=== PATIENT | female | born 1985 | race Caucasian/White ===

== ENCOUNTER 2021-01-09 09:02 | Emergency (ER) | payer SELFPAY ==
--- NOTE | 2021-01-09 09:50 | EDPHYS ---
Physician Documentation [facility] Name: Lakeshia Hodges Age: 35 yrs Sex: Female : 1985 Arrival Date: 01/09/2021 Time: 09:04 Bed 24 Private MD: ED Physician Dereje Acevedo HPI: 01/09 09:41 This 35 yrs old Female presents to ER via Ambulatory with complaints of cp Medication Refill. 09:41 The patient presents to the emergency department requesting refill(s) for: Effexor. The cp patient chronically suffers from Depression. Patient reports running out of Venlafaxine 37.5 mg 2 days ago. 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 - Social history:: Smoking status: Patient denies any tobacco usage or history of. ROS: 09:45 All other systems are negative. cp Exam: 09:45 Head/Face: Normocephalic, atraumatic. cp 09:45 Constitutional: The patient appears in no acute distress, alert, awake, non-toxic, well developed, well nourished. 09:45 Eyes: Periorbital structures: appear normal, Conjunctiva: normal, no exudate, no injection, Lids and lashes: appear normal, bilaterally. 09:45 ENT: External ear(s): are unremarkable, Nose: is normal, Posterior pharynx: Airway: no evidence of obstruction, patent. 09:45 Chest/axilla: Inspection: normal. 09:45 Cardiovascular: Rate: normal. 09:45 Respiratory: the patient does not display signs of respiratory distress, Respirations: normal, no use of accessory muscles, no retractions. 09:45 Abdomen/GI: Exam negative for discomfort, distension, guarding, Inspection: abdomen appears normal. 09:45 Neuro: Orientation: to person, place \T\ time. Mentation: is normal, Motor: moves all fours, strength is normal. 09:45 Psych: Behavior/mood is pleasant, Affect is calm, Oriented to person, place, time, Judgement / Insight is normal. Delusions/hallucinations are not present. Vital Signs: 09:21 BP 124 / 82; Pulse 96; Resp 16; Temp 98.5; Pulse Ox 100% on R/A; Pain 0/10; iw MDM: 09:29 Patient medically screened. cp 09:47 Data reviewed: vital signs, nurses notes. cp 09:48 Counseling: I had a detailed discussion with the patient and/or guardian regarding: the cp historical points, exam findings, and any diagnostic results supporting the discharge/admit diagnosis, the need for outpatient follow up, a family practitioner, to return to the emergency department if symptoms worsen or persist or if there are any questions or concerns that arise at home. Administered Medications: 11:21 Drug: Effexor 37.5 mg Route: PO; iw Disposition: 10:00 Chart complete. cp Disposition: 01/09/21 09:49 Discharged to Home. Impression: Encounter for issue of repeat prescription. - Condition is Stable. - Discharge Instructions: Medicine Refill at the Emergency Department. - Prescriptions for venlafaxine 37.5 mg Oral capsule,extended release 24hr - take 1 capsule by ORAL route once daily; 20 capsule. - Medication Reconciliation Form, Thank You Letter, Antibiotic Education, Prescription Opioid Use form. - Follow up: Private Physician; When: 1 - 2 days; Reason: Worsening of condition. - Problem is new. - Symptoms have improved. Addendum: 01/11/2021 06:54 Co-signature as Attending Physician, Dereje Acevedo MD I agree with the assessment and c higuera plan of care. Signatures: Dereje Acevedo MD MD cha Williams, Irene, RN RN Dereje Calderon PA PA cp Corrections: (The following items were deleted from the chart) 01/09 11:22 09:49 01/09/2021 09:49 Discharged to Home. Impression: Encounter for issue of repeat iw prescription. Condition is Stable. Forms are Medication Reconciliation Form, Thank You Letter, Antibiotic Education, Prescription Opioid Use. Follow up: Private Physician; When: 1 - 2 days; Reason: Worsening of condition. Problem is new. Symptoms have improved. cp
--- NOTE | 2021-01-09 09:50 | ER ---
Nurse's Notes [facility] Name: Lakeshia Hodges Age: 35 yrs Sex: Female : 1985 Arrival Date: 01/09/2021 Time: 09:04 Bed 24 Private MD: Diagnosis: Encounter for issue of repeat prescription Presentation: 01/09 09:21 Chief complaint: Patient states: has been out of antidepressant X 2 days, is on iw venlafaxine 37.5 mg, Dr. Jennings office is closed and her pharmacy is closed. Coronavirus screen: At this time, the client does not indicate any symptoms associated with coronavirus-19. Ebola Screen: Patient negative for fever greater than or equal to 101.5 degrees Fahrenheit, and additional compatible Ebola Virus Disease symptoms Patient denies exposure to infectious person. Patient denies travel to an Ebola-affected area in the 21 days before illness onset. No symptoms or risks identified at this time. Initial Sepsis Screen: Does the patient meet any 2 criteria? No. Patient's initial sepsis screen is negative. Does the patient have a suspected source of infection? No. Patient's initial sepsis screen is negative. Risk Assessment: Do you want to hurt yourself or someone else? Patient reports no desire to harm self or others. Onset of symptoms was January 09, 2021. 09:21 Method Of Arrival: Ambulatory iw 09:21 Acuity: DIXON 5 iw Triage Assessment: 11:00 General: Appears in no apparent distress. Behavior is calm, cooperative. 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 - Social history:: Smoking status: Patient denies any tobacco usage or history of. Screenin:20 Abuse screen: Denies threats or abuse. Denies injuries from another. Nutritional iw screening: No deficits noted. Tuberculosis screening: No symptoms or risk factors identified. Fall Risk None identified. Assessment: 09:25 General: Appears in no apparent distress. Behavior is calm, cooperative. Pain: Denies iw pain. Neuro: Level of Consciousness is awake, alert, obeys commands, Oriented to person, place, time, situation, Moves all extremities. Full function. Cardiovascular: Patient's skin is warm and dry. Respiratory: Respiratory effort is even, unlabored, Respiratory pattern is regular. Derm: Skin is intact, is healthy with good turgor. Musculoskeletal: Range of motion: intact in all extremities. Vital Signs: 09:21 BP 124 / 82; Pulse 96; Resp 16; Temp 98.5; Pulse Ox 100% on R/A; Pain 0/10; iw ED Course: 09:04 Patient arrived in ED. rg4 09:23 Triage completed. iw 09:24 Dereje Calderon PA is PHCP. cp 09:24 Dereje Acevedo MD is Attending Physician. cp 09:25 Arm band placed on. iw 09:25 Patient has correct armband on for positive identification. iw 09:39 Pascale Garay RN is Primary Nurse. iw 11:21 No provider procedures requiring assistance completed. Patient did not have IV access iw during this emergency room visit. Administered Medications: 11:21 Drug: Effexor 37.5 mg Route: PO; iw Outcome: 09:49 Discharge ordered by MD. cp 11:21 Discharged to home ambulatory. iw 11:21 Condition: good 11:21 Discharge instructions given to patient, Instructed on discharge instructions, follow up and referral plans. medication usage, Demonstrated understanding of instructions, follow-up care, medications, Prescriptions given X 1. 11:22 Patient left the ED. iw Signatures: Pascale Garay RN RN iw Dereje Calderon PA PA cp Garcia, Rubi rg4
[2021-01-09] MEDS ORDERED: VENLAFAXINE HCL 37.5 MG TAB PO ONE (10:45)
[2021-01-09 11:31] VITALS: BP 124/82; TEMP 98.5; O2SAT 100
== END 2021-01-09 11:22 | disposition home or self-care (01) ==
LOC: ER 09:02
DX: Z76.0 Encounter for issue of repeat prescription (principal); F32.9 Major depressive disorder, single episode, unspecified
CPT/HCPCS: 99283

== ENCOUNTER 2021-02-20 15:01 | Emergency (ER) | payer SELFPAY ==
[2021-02-20 15:42] LABS: Urine Blood Negative (Negative); Urine Glucose Negative (Negative); Urine Protein Negative (Negative)
[2021-02-20 15:45] LABS: Absolute Lymphocytes (CBC) 2.8 K/uL (0.7-4.9); Basophils % 0.5 % (0-1.3); Hematocrit 34.2 % (36.0-45.0); Lymphocytes % 19.4 % (15.3-44.8); MPV 7.8 fL (7.6-11.3); RBC Red Blood Cell Count 3.89 M/uL (3.86-4.86)
[2021-02-20] MEDS ORDERED: LORazepam 2 MG/ML VIAL ONE (15:47)
[2021-02-20] MEDS ORDERED: NA CHLORIDE 0.9% 1,000 ML ONE (15:47)
[2021-02-20 15:54] LABS: Protime INR 0.99
[2021-02-20 15:58] LABS: Barbiturates NEGATIVE (NEGATIVE); Benzodiazepines NEGATIVE (NEGATIVE); Cocaine NEGATIVE (NEGATIVE); METHAMPHETAM NEGATIVE (NEGATIVE); Methadone NEGATIVE (NEGATIVE); Opiates NEGATIVE (NEGATIVE); Phencyclidine NEGATIVE (NEGATIVE); THC Cannibis POSITIVE (NEGATIVE)
[2021-02-20 16:19] LABS: ALT/SGPT 21 U/L (12-78); AST/SGOT 22 U/L (15-37); Albumin 3.9 g/dL (3.4-5.0); Alkaline Phosphatase 92 U/L (45-117); BUN Blood Urea Nitrogen 11 mg/dL (7-18); Bicarbonate 26 mmol/L (21-32); Bilirubin Direct < 0.1 mg/dL (0-0.2); Bilirubin Total 0.2 mg/dL (0.2-1.0); Glucose Level 86 mg/dL (74-106); Potassium 3.5 mmol/L (3.5-5.1); Sodium Level 143 mmol/L (136-145); Troponin (Emerg Dept Use Only) < 0.02 ng/mL (0.0-0.045)
--- NOTE | 2021-02-20 17:56 | EDPHYS ---
Physician Documentation [facility] Name: Lakeshia Hodges Age: 36 yrs Sex: Female : 1985 Arrival Date: 02/20/2021 Time: 15:02 Bed 14 Private MD: ED Physician Sandro Xiong HPI: 02/20 15:18 This 36 yrs old Female presents to ER via Ambulatory with complaints of jmm Anxiety. 15:18 The patient presents to the emergency department with anxiety. Onset: The jmm symptoms/episode began/occurred today. Associated signs and symptoms: Pertinent positives; palpitations, Pertinent negatives: abdominal pain. This is a 36 year old female with a history of depression that presents to the ED with complaints of anxiety. Patient states drinking a heavy amount of alcohol last night. Patient is concerned she may have ingested an unknown substance. . Historical: - Allergies: 15:11 No Known Allergies; ll1 - PMHx: 15:11 Depression; ll1 - PSHx: 15:11 Tubal ligation; Hernia repair; ll1 - Immunization history:: Flu vaccine is not up to date. - Social history:: Smoking status: Patient reports the use of cigarette tobacco products, denies chronic smoking, but will smoke occasionally. ROS: 15:18 Constitutional: Negative for fever, chills, and weight loss. jmm 15:18 Cardiovascular: Positive for palpitations. 15:18 Psych: Positive for anxiety. 15:18 All other systems are negative. Exam: 15:18 Head/Face: atraumatic. Eyes: EOMI, no conjunctival erythema appreciated ENT: Moist jmm Mucus Membranes Neck: Trachea midline, Supple Chest/axilla: Normal chest wall appearance and motion. 15:18 Respiratory: Normal respirations, no respiratory distress appreciated Abdomen/GI: Non distended, soft Back: Normal ROM Skin: General appearance color normal MS/ Extremity: Moves all extremities, no obvious deformities appreciated, no edema noted to the lower extremities 15:18 Constitutional: The patient appears alert, awake, anxious, uncomfortable. 15:18 Cardiovascular: Rate: tachycardic, Rhythm: 15:18 Neuro: Orientation: is normal, Mentation: is normal, Memory: is normal. 15:18 Psych: Behavior/mood is pleasant, cooperative, anxious. Vital Signs: 15:09 BP 125 / 89; Pulse 146; Resp 17; Temp 98.2; Pulse Ox 100% on R/A; Weight 49.44 kg; ll1 Height 5 ft. 0 in. (152.40 cm); Pain 10/10; 15:35 BP 130 / 96; Pulse 112; Resp 22; Pulse Ox 100% ; jl7 16:01 BP 122 / 86; Pulse 95; Resp 19; Pulse Ox 100% ; jl7 17:15 BP 108 / 76; Pulse 107; Resp 24; Pulse Ox 99% ; jl7 15:09 Body Mass Index 21.29 (49.44 kg, 152.40 cm) ll1 MDM: 15:18 Patient medically screened. [facility] 17:53 Data reviewed: vital signs, nurses notes. [facility] 17:53 Counseling: I had a detailed discussion with the patient and/or guardian regarding: the [facility] historical points, exam findings, and any diagnostic results supporting the discharge/admit diagnosis, lab results, the need for outpatient follow up, to return to the emergency department if symptoms worsen or persist or if there are any questions or concerns that arise at home. ED course: Patient states feeling much better. DS revealed THC, this was discussed with the patient. Patient will follow up with her PCP and otherwise given strict return precautions. patient understood and agrees with the plan of care. . 02/20 15:21 Order name: Acetaminophen [facility] 02/20 15:21 Order name: Basic Metabolic Panel [facility] 02/20 15:21 Order name: CBC with Diff [facility] 02/20 15:21 Order name: ETOH Level; Complete Time: 18:19 [facility] 02/20 15:21 Order name: Hepatic Function; Complete Time: 18:19 [facility] 02/20 15:21 Order name: PT-INR; Complete Time: 18:19 [facility] 02/20 15:21 Order name: Ptt, Activated; Complete Time: 18:19 [facility] 02/20 15:21 Order name: Salicylate; Complete Time: 18:19 [facility] 02/20 15:21 Order name: Urine Drug Screen; Complete Time: 16:08 [facility] 02/20 15:21 Order name: Troponin (emerg Dept Use Only); Complete Time: 18:19 [facility] 02/20 15:21 Order name: Acetaminophen Level; Complete Time: 18:19 [facility] 02/20 15:21 Order name: Basic Metabolic Panel; Complete Time: 18:19 [facility] 02/20 15:21 Order name: CBC with Automated Diff; Complete Time: 15:53 [facility] 02/20 15:41 Order name: Urine Dipstick-Ancillary; Complete Time: 15:53 [facility] 02/20 15:21 Order name: EKG; Complete Time: 15:22 [facility] 02/20 15:21 Order name: EKG - Nurse/Tech; Complete Time: 15:58 [facility] 02/20 15:21 Order name: IV Saline Lock; Complete Time: 15:33 [facility] 02/20 15:21 Order name: Labs collected and sent; Complete Time: 15:33 [facility] 02/20 15:21 Order name: Urine Dipstick-Ancillary (obtain specimen); Complete Time: 15:58 [facility] 02/20 15:44 Order name: Urine --Ancillary (enter results); Complete Time: 16:08 bd Administered Medications: 15:40 Drug: NS 0.9% 1000 ml Route: IV; Rate: 1 bolus; Site: right antecubital; 7 16:40 Follow up: Response: No adverse reaction; IV Status: Completed infusion; IV Intake: jl7 1000ml 15:40 Drug: Ativan 1 mg Route: IVP; Site: right antecubital; 7 15:58 Follow up: Response: No adverse reaction; Anxiety decreased jl7 Disposition: 18:50 Co-signature as Attending Physician, Sandro Xiong MD. ma2 Disposition: 02/20/21 17:56 Discharged to Home. Impression: Anxiety disorder, unspecified. - Condition is Stable. - Discharge Instructions: Panic Attacks. - Medication Reconciliation Form, Thank You Letter, Antibiotic Education, Prescription Opioid Use form. - Follow up: Private Physician; When: 2 - 3 days; Reason: Recheck today's complaints, Continuance of care, Re-evaluation by your physician. Signatures: Dispatcher [employer] [facility] Gabriel Lee PA PA jmm Leal, Jahala, RN RN jl7 Sandro Xiong MD MD ma2 Tyshawn Salazar RN RN ll1 Corrections: (The following items were deleted from the chart) 18:18 17:56 02/20/2021 17:56 Discharged to Home. Impression: Anxiety disorder, unspecified. jl7 Condition is Stable. Forms are Medication Reconciliation Form, Thank You Letter, Antibiotic Education, Prescription Opioid Use. Follow up: Private Physician; When: 2 - 3 days; Reason: Recheck today's complaints, Continuance of care, Re-evaluation by your physician. lauri
--- NOTE | 2021-02-20 17:56 | ER ---
Nurse's Notes [facility] Name: Lakeshia Hodges Age: 36 yrs Sex: Female : 1985 Arrival Date: 02/20/2021 Time: 15:02 Bed 14 Private MD: Diagnosis: Anxiety disorder, unspecified Presentation: 02/20 15:09 Chief complaint: Patient states: Drank last night a lot. 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 Anxiety attack for 1 day. + chest tightness. Near syncope. Coronavirus screen: Client denies travel out of the [place] in the last 14 days. At this time, the client does not indicate any symptoms associated with coronavirus-19. Ebola Screen: Patient denies travel to an Ebola-affected area in the 21 days before illness onset. Initial Sepsis Screen: Does the patient meet any 2 criteria? HR > 90 bpm. No. Patient's initial sepsis screen is negative. Does the patient have a suspected source of infection? No. Patient's initial sepsis screen is negative. Risk Assessment: Do you want to hurt yourself or someone else? Patient reports no desire to harm self or others. Onset of symptoms was February 20, 2021. 15:09 Method Of Arrival: Ambulatory ll1 15:09 Acuity: DIXON 3 ll1 Historical: - Allergies: 15:11 No Known Allergies; ll1 - PMHx: 15:11 Depression; ll1 - PSHx: 15:11 Tubal ligation; Hernia repair; ll1 - Immunization history:: Flu vaccine is not up to date. - Social history:: Smoking status: Patient reports the use of cigarette tobacco products, denies chronic smoking, but will smoke occasionally. Screenin:35 Abuse screen: Denies threats or abuse. Denies injuries from another. Nutritional jl7 screening: No deficits noted. Tuberculosis screening: No symptoms or risk factors identified. Fall Risk IV access (20 points). Total Meyer Fall Scale indicates No Risk (0-24 pts). Assessment: 15:35 General: Appears in no apparent distress. uncomfortable, Behavior is cooperative, jl7 anxious. Pain: Denies pain. Neuro: Level of Consciousness is awake, alert, obeys commands, Oriented to person, place, time, situation. Cardiovascular: Denies chest pain, Patient's skin is warm and dry. Rhythm is sinus tachycardia. Respiratory: Reports shortness of breath Airway is patent Respiratory effort is even, unlabored, Respiratory pattern is symmetrical, tachypnea. Derm: Skin is dry, Skin is flushed, Skin temperature is warm. 17:00 Reassessment: Pt laying in bed with eyes closed, respirations even and unlabored, no jl7 signs of distress noted at this time. 17:45 Reassessment: Patient appears in no apparent distress at this time. Patient is alert, jl7 oriented x 3, equal unlabored respirations, skin warm/dry/pink. Patient states feeling better. Patient states symptoms have improved. Vital Signs: 15:09 BP 125 / 89; Pulse 146; Resp 17; Temp 98.2; Pulse Ox 100% on R/A; Weight 49.44 kg; ll1 Height 5 ft. 0 in. (152.40 cm); Pain 10/10; 15:35 BP 130 / 96; Pulse 112; Resp 22; Pulse Ox 100% ; jl7 16:01 BP 122 / 86; Pulse 95; Resp 19; Pulse Ox 100% ; jl7 17:15 BP 108 / 76; Pulse 107; Resp 24; Pulse Ox 99% ; jl7 15:09 Body Mass Index 21.29 (49.44 kg, 152.40 cm) ll1 ED Course: 15:02 Patient arrived in ED. ds1 15:11 Triage completed. ll1 15:11 Arm band placed on Patient placed in an exam room, on a stretcher. ll1 15:14 Gabriel Lee PA is PHCP. [facility] 15:14 Sandro Xiong MD is Attending Physician. [facility] 15:27 Ayesha Francis RN is Primary Nurse. jl7 15:32 Inserted saline lock: 20 gauge in right antecubital area, using aseptic technique. dh4 Blood collected. 15:35 Patient has correct armband on for positive identification. Placed in gown. Bed in low jl7 position. Call light in reach. Side rails up X 1. property assessment monitor on. Pulse ox on. NIBP on. Warm blanket given. 15:35 Initial lab(s) drawn, by ED staff, sent to lab. Urine collected: clean catch specimen, jl7 clear, EKG done, by ED staff, reviewed by Gabriel CARR. 18:14 No provider procedures requiring assistance completed. IV discontinued, intact, jl7 bleeding controlled, No redness/swelling at site. Pressure dressing applied. Administered Medications: 15:40 Drug: NS 0.9% 1000 ml Route: IV; Rate: 1 bolus; Site: right antecubital; jl7 16:40 Follow up: Response: No adverse reaction; IV Status: Completed infusion; IV Intake: jl7 1000ml 15:40 Drug: Ativan 1 mg Route: IVP; Site: right antecubital; jl7 15:58 Follow up: Response: No adverse reaction; Anxiety decreased jl7 Intake: 16:40 IV: 1000ml; Total: 1000ml. jl7 Outcome: 17:56 Discharge ordered by . lauri 18:14 Discharged to home ambulatory, with family. jl7 18:14 Condition: stable 18:14 Discharge instructions given to patient, Instructed on discharge instructions, follow up and referral plans. Demonstrated understanding of instructions, follow-up care. 18:18 Patient left the ED. jl7 Signatures: Gabriel Lee PA PA jmm Sanford, Demi ds1 Ayesha Francis RN RN jl7 Alonso Mclcain 4 Tyshawn Salazar, RN RN ll1
[2021-02-20 19:15] VITALS: BP 108/76; O2SAT 99
--- NOTE | 2021-02-21 17:02 | EKG ---
Test Date: 2021-02-20 Test Time: 15:38:17 Contract Associate: DAYNE MEASUREMENT RESULTS: Intervals: Rate: 104 WV: 164 QRSD: 76 QT: 348 QTc: 457 [place]: P: 66 WV: 164 QRS: 64 T: 28 INTERPRETIVE STATEMENTS: Sinus tachycardia Otherwise normal ECG Compared to ECG 03/04/2017 15:29:00 ST (T wave) deviation no longer present Possible ischemia no longer present Electronically Signed On 02-21-21 17:00:37 CDT by Owen Ervin
== END 2021-02-20 18:18 | disposition home or self-care (01) ==
LOC: ER 15:01
DX: F41.8 Other specified anxiety disorders (principal); F17.210 Nicotine dependence, cigarettes, uncomplicated
CPT/HCPCS: 36415; 80048; 80076; 80307; 80320; 80329; 81003; 81025; 84484; 85025; 85610; 85730; 93005; 96361; 96374; 99284; J7030